=== PATIENT | female | born 1975 | race Caucasian/White ===

== ENCOUNTER 2020-01-23 09:52 | Emergency (ER) | payer MEDICARE ==
[~2020-01-23] VITALS: Ht 147.3 cm; Wt 83.9 kg
[~2020-01-23 09:52] MED LIST: ADVAIR 250/501 EA INH; CLARITIN10 M3 PO; INSULIN REGULAR SC; LORTAB 10-5001 EACH PO; NAPROXEN500 MG PO; SINGULAIR10 MG PO; XOPENEX HFA15 G1 INH; Z.0.LANTUS100 UNIT/1 SC; Z.0.NEURONTIN100 MG PO; Z.0.NORCO 10-325 T1 PO; Z.0.VICTOZA 2-0.6 MG; Z.0.XANAX1 MG PO; Z.0.ZOLOFT50 MG PO; Z.1.METFORMIN HCL100 PO
--- OUTSIDE RECORDS SUMMARY | 2020-01-23 09:56 | XMS REPORT ---
Author Author [facility] Address Unknown Phone Unavailable Care Team Providers Care 911 Dispatcher Name Role Phone Unavailable Unavailable Payers Payer Name Policy Type Policy Number Effective Date Expiration Date Problems This patient has no known problems. Allergies, Adverse Reactions, Alerts Allergy Name Allergy Type Status Severity Reaction(s) Onset Date Inactive Date Treating Clinician Comments aspirin DA Active SV 2013-05-29 00:00:00 Medications This patient has no known medications. Results Test Description Test Time Test Comments Text Results Atomic Results Result Comments - CT ABD PELVIS W/CONT 2019-09-24 19:45:00 Name: JOSE OLSON [facility] : 1975 Age/S: 44 / F [address] [facility] Unit #: [id number] Loc: [place] [address] Phys: Luis Manuel Leon MD Acct: [id number] Dis Date: Status: REG ER PHONE #: [phone] Exam Date: 09/24/2019 1901 FAX #: [phone] Reason: LUQ and RLQ pain EXAMS: CPT CODE: [id number] CT ABD PELVIS W/CONT 63249 HISTORY: Left upper and right lower quadrant pain. COMPARISON: CT scan from October 20, 2015. Location: TH. CT abdomen and pelvis with IV contrast: 100 mL is 370. Automated exposure control. CT of abdomen: The lung bases are clear. Small blebs and/or pneumatoceles in the left lung base. The liver is enhancing homogeneously. No mass or lesions. 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 The liver measured 18.1 cm in length. Portal vein and hepatic artery remain patent. Patient is post cholecystectomy. The spleen is not enlarged at 12.2 cm in length. Patient is post gastric sleeve procedure small. Stomach with thickened wall space in the antrum. Pancreas is enhancing homogeneously. Adrenals are normal. Kidneys are free from hydroureteronephrosis. Homogeneous enhancement. Bilateral excretion is noted. No pathologic adenopathy. Well-opacified abdominal and pelvic vasculature. No bowel obstruction or colitis or diverticulitis or enteritis. Constipation. CT PELVIS: Appendix is normal. Pelvic bowel loops are unobstructed. Thickened sigmoid colonic wall. Correlate for colitis. Mild inflammation. No free fluid or free air or abscess. Unremarkable urinary bladder and uterus. No free fluid or free air or abscess. No pelvic pathologic adenopathy. Subcutaneous tissues and the musculature are normal in appearance. No PAGE 1 Signed Report (CONTINUED) Name: JOSE OLSON [facility] : 1975 Age/S: 44 / F [address] [facility] [address] [facility] Unit #: [id number] Loc: [place] [address] Phys: Luis Manuel Leon MD Acct: [id number] Dis Date: Status: REG ER PHONE #: [phone] Exam Date: 09/24/2019 190 FAX #: [phone] Reason: LUQ and RLQ pain EXAMS: CPT CODE: [id number] CT ABD PELVIS W/CONT 80816 <Continued> lytic or blastic lesions are noted within the bony skeleton. 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 Grade 1 retrolisthesis of L5 over S1 without spondylolysis. IMPRESSION: Mild sigmoid colitis without free fluid or free air or abscess. Normal appendix. Mildly thickened gastric wall. Correlate for gastritis. at 1945 Reported and signed by: Forest Phipps M.D. CC: Luis Manuel Leon MD Technologist:Lucy Pillai CTDI: DLP: Trnscb Date/Time: 09/24/2019 (1944) [email or web address] Orig Print D/T: S: 09/24/2019 (1947) PAGE 2 Signed Report DRUGS OF ABUSE SCREEN UR 2019-09-24 19:28:00 URN COCAINE (test code=COCAURN) NEGATIVE NEGATIVE URN CANNABINOIDS (test code=CANNABURN) POSITIVE NEGATIVE URN AMPHETAMINE (test code=AMPHETURN) NEGATIVE NEGATIVE URN BARBITURATE (test code=BARBITURN) POSITIVE NEGATIVE This test provides only a preliminary test result. A morespecific alternate chemical method must be used in order toobtain a confirmed analytical result. Gas chromatography/mass spectrometry (GC/MS) is thepreferred confirmatory method. Other chemical confirmationmethods are available. Clinical consideration and professional judgment should be applied to any drug of abusetest result, particularly when preliminary positive resultsare used.Unconfirmed screening results must not be used fornon-medical purposes (e.g., employment testing, legaltesting). URN BENZODIAZEPINE (test code=BENZOURN) NEGATIVE NEGATIVE URN OPIATES (test code=OPIATURN) NEGATIVE NEGATIVE URN PHENCYCLIDINE (PCP) (test code=PHENCURN) NEGATIVE NEGATIVE - XR CHEST 2 [id number] 19:07:00 Name: JOSE OLSON [facility] : 1975 Age/S:44 /F [address] [facility] [address] [facility] Unit#:[id number] Loc: [place] [address] Phys: Luis Manuel Leon MD Dis Date: PHONE #: [phone] Status: REG FAX #: [phone] Exam Date: 09/24/2019 Reason: wheezing EXAMS: CPT CODE: [id number] XR CHEST 2 V 46590 HISTORY: Wheezing. COMPARISON: March 17, 2018. Location: TH. AP and lateral view of the chest: No acute infiltrates, effusion or congestion. Cardiac and the mediastinal silhouette are normal. IMPRESSION: No acute infiltrates, effusion or congestion. at 1907 Reported and signed by: Forest Phipps M.D. CC: Luis Manuel Leon MD Technologist: Lucy Mcdonaldscrpt Data: 09/24/2019 (1906) [email or web address] Orig Print D/T: S: 09/24/2019 (229) PAGE 1 Signed Report TROPONIN-I 2019-09-24 18:58:00* Test Item Value Reference Range Comments TROPONIN-I (test code=TROPI) <0.015 ng/mL 0.00-0.056 COMPREHENSIVE METABOLIC [id number] 18:43:00* Test Item Value Reference Range Comments SODIUM (test code=NA) 140 mmol/L 136-145 POTASSIUM (test code=K) 3.7 mmol/L 3.5-5.1 CHLORIDE (test code=CL) 101 mmol/L 101-109 CARBON DIOXIDE (test code=CO2) 30.2 mmol/L 21-32 ANION GAP (test code=GAP) 13 mmol/L 10-20 GLUCOSE (test code=GLU) 84 mg/dL 74-106 BLOOD UREA NITROGEN (test code=BUN) 18 mg/dL 3-21 CREATININE (test code=CREAT) 0.75 mg/dL 0.55-1.3 BUN/CREATININE RATIO (test code=BUN/CREA) 24.0 10-20 TOTAL PROTEIN (test code=PROT) 7.5 g/dL 6.5-8.4 ALBUMIN (test code=ALB) 3.9 g/dL 3.4-4.8 GLOBULIN (test code=GLOB) 3.6 G/DL 1-10 ALBUMIN/GLOBULIN RATIO (test code=A/G) 1.08 RATIO 0.75-1.50 CALCIUM (test code=CA) 9.1 mg/dL 8.4-10.2 BILIRUBIN TOTAL (test code=BILT) 0.30 mg/dL 0.0-1.0 SGOT/AST (test code=AST) 28 U/L 6-32 SGPT/ALT (test code=ALT) 16 U/L 12-78 Note: Change in REFERENCE RANGE due to new reagent method. ALKALINE PHOSPHATASE TOTAL (test code=ALKP) 65 U/L 38-126 [id number] 18:43:00* Test Item Value Reference Range Comments LIPASE (test code=LIP) 86 U/L 128-270 URINALYSIS [id number] 18:38:00* Test Item Value Reference Range Comments UA COLOR (test code=COLU) YELLOW YELLOW UA APPEARANCE (test code=APPU) HAZY CLEAR UA GLUCOSE DIPSTICK (test code=DGLUU) norm mg/dL NEGATIVE UA BILIRUBIN DIPSTICK (test code=BILU) NEGATIVE mg/dL NEGATIVE UA KETONE DIPSTICK (test code=KETU) 5 (Trace) mg/dL NEGATIVE UA SPECIFIC GRAVITY (test code=SGU) 1.030 1.001-1.035 UA BLOOD DIPSTICK (test code=CHOLO) 250 (4+) Vikash/uL NEGATIVE UA PH DIPSTICK (test code=ALEJANDRO) 5.0 5.0-8.0 UA PROTEIN DIPSTICK (test code=PROU) 15 (TRACE) mg/dL Neg-15 UA UROBILINIOGEN DIPSTICK (test code=URO) 1 mg/dL 0.0-0.2 UA NITRITE DIPSTICK (test code=CHRISITANO) NEGATIVE NEGATIVE UA LEUKOCYTE ESTERASE DIPSTICK (test code=LEUU) 25 Fred/uL (Trace) uL NEGATIVE UA WBC (test code=WBCU) 0-5 per HPF 0-5 UA RBC (test code=RBCU) 5-10 per HPF 0-5 UA EPITHELIAL CELLS (test code=EPIU) Few (2-5/hpf) per HPF Few UA BACTERIA (test code=BACU) FEW per HPF NONE URINALYSIS W/O [id number] 18:38:00* Test Item Value Reference Range Comments UA MICROSCOPIC NEEDED? (test code=UAMICRO) YES UR HCG [id number] 18:38:00* Test Item Value Reference Range Comments UR HCG QUAL (test code=HCGQLU) NEGATIVE This HCGQL test is NOT applicable for MALE patients.Check with nurse about probable order error.If Tumor Marker Test needed, nurse should order test "HCGTU"(Test #550.82861) COMPREHENSIVE METABOLIC [id number] 18:38:00* Test Item Value Reference Range Comments SODIUM (test code=NA) 140 mmol/L 136-145 POTASSIUM (test code=K) 3.7 mmol/L 3.5-5.1 CHLORIDE (test code=CL) 101 mmol/L 101-109 CARBON DIOXIDE (test code=CO2) 30.2 mmol/L 21-32 ANION GAP (test code=GAP) 13 mmol/L 10-20 GLUCOSE (test code=GLU) 84 mg/dL 74-106 BLOOD UREA NITROGEN (test code=BUN) 18 mg/dL 3-21 CREATININE (test code=CREAT) 0.75 mg/dL 0.55-1.3 BUN/CREATININE RATIO (test code=BUN/CREA) 24.0 10-20 TOTAL PROTEIN (test code=PROT) gram/dL 6.4-8.2 ALBUMIN (test code=ALB) g/dL 3.4-5.0 GLOBULIN (test code=GLOB) g/dL 2.7-4.2 ALBUMIN/GLOBULIN RATIO (test code=A/G) 0.75-1.50 CALCIUM (test code=CA) 9.1 mg/dL 8.4-10.2 BILIRUBIN TOTAL (test code=BILT) mg/dL 0.2-1.2 SGOT/AST (test code=AST) IUnit/L 15-37 SGPT/ALT (test code=ALT) U/L 10-69 ALKALINE PHOSPHATASE TOTAL (test code=ALKP) IUnit/L 45-117 [id number] 18:38:00* Test Item Value Reference Range Comments LIPASE (test code=LIP) Unit/L 144-286 URINALYSIS [id number] 18:29:00* Test Item Value Reference Range Comments UA COLOR (test code=COLU) YELLOW UA APPEARANCE (test code=APPU) CLEAR UA GLUCOSE DIPSTICK (test code=DGLUU) norm mg/dL NEGATIVE UA BILIRUBIN DIPSTICK (test code=BILU) NEGATIVE mg/dL NEGATIVE UA KETONE DIPSTICK (test code=KETU) 5 (Trace) mg/dL NEGATIVE UA SPECIFIC GRAVITY (test code=SGU) 1.030 1.001-1.035 UA BLOOD DIPSTICK (test code=CHOLO) 250 (4+) Vikash/uL NEGATIVE UA PH DIPSTICK (test code=ALEJANDRO) 5.0 5.0-8.0 UA PROTEIN DIPSTICK (test code=PROU) 15 (TRACE) mg/dL Neg-15 UA UROBILINIOGEN DIPSTICK (test code=URO) 1 mg/dL 0.0-0.2 UA NITRITE DIPSTICK (test code=CHRISTIANO) NEGATIVE NEGATIVE UA LEUKOCYTE ESTERASE DIPSTICK (test code=LEUU) 25 Fred/uL (Trace) uL NEGATIVE UA WBC (test code=WBCU) per HPF 0-5 UA RBC (test code=RBCU) per HPF 0-5 UA EPITHELIAL CELLS (test code=EPIU) per HPF Few UA BACTERIA (test code=BACU) per HPF NONE URINALYSIS W/O [id number] 18:29:00* Test Item Value Reference Range Comments UA MICROSCOPIC NEEDED? (test code=UAMICRO) YES UR HCG [id number] 18:29:00* Test Item Value Reference Range Comments UR HCG QUAL (test code=HCGQLU) URINALYSIS [id number] 18:29:00* Test Item Value Reference Range Comments UA COLOR (test code=COLU) YELLOW UA APPEARANCE (test code=APPU) CLEAR UA GLUCOSE DIPSTICK (test code=DGLUU) norm mg/dL NEGATIVE UA BILIRUBIN DIPSTICK (test code=BILU) NEGATIVE mg/dL NEGATIVE UA KETONE DIPSTICK (test code=KETU) 5 (Trace) mg/dL NEGATIVE UA SPECIFIC GRAVITY (test code=SGU) 1.030 1.001-1.035 UA BLOOD DIPSTICK (test code=CHOLO) 250 (4+) Vikash/uL NEGATIVE UA PH DIPSTICK (test code=ALEJANDRO) 5.0 5.0-8.0 UA PROTEIN DIPSTICK (test code=PROU) 15 (TRACE) mg/dL Neg-15 UA UROBILINIOGEN DIPSTICK (test code=URO) 1 mg/dL 0.0-0.2 UA NITRITE DIPSTICK (test code=CHRISTIANO) NEGATIVE NEGATIVE UA LEUKOCYTE ESTERASE DIPSTICK (test code=LEUU) 25 Fred/uL (Trace) uL NEGATIVE UA WBC (test code=WBCU) per HPF 0-5 UA RBC (test code=RBCU) per HPF 0-5 UA EPITHELIAL CELLS (test code=EPIU) per HPF Few UA BACTERIA (test code=BACU) per HPF NONE URINALYSIS W/O [id number] 18:29:00* Test Item Value Reference Range Comments UA MICROSCOPIC NEEDED? (test code=UAMICRO) YES UR HCG [id number] 18:29:00* Test Item Value Reference Range Comments UR HCG QUAL (test code=HCGQLU) NEGATIVE This HCGQL test is NOT applicable for MALE patients.Check with nurse about probable order error.If Tumor Marker Test needed, nurse should order test "HCGTU"(Test #550.13620) URINALYSIS [id number] 18:29:00* Test Item Value Reference Range Comments UA COLOR (test code=COLU) YELLOW UA APPEARANCE (test code=APPU) CLEAR UA GLUCOSE DIPSTICK (test code=DGLUU) norm mg/dL NEGATIVE UA BILIRUBIN DIPSTICK (test code=BILU) NEGATIVE mg/dL NEGATIVE UA KETONE DIPSTICK (test code=KETU) 5 (Trace) mg/dL NEGATIVE UA SPECIFIC GRAVITY (test code=SGU) 1.030 1.001-1.035 UA BLOOD DIPSTICK (test code=CHOLO) 250 (4+) Vikash/uL NEGATIVE UA PH DIPSTICK (test code=ALEJANDRO) 5.0 5.0-8.0 UA PROTEIN DIPSTICK (test code=PROU) 15 (TRACE) mg/dL Neg-15 UA UROBILINIOGEN DIPSTICK (test code=URO) 1 mg/dL 0.0-0.2 UA NITRITE DIPSTICK (test code=CHRISTAINO) NEGATIVE NEGATIVE UA LEUKOCYTE ESTERASE DIPSTICK (test code=LEUU) 25 Fred/uL (Trace) uL NEGATIVE UA WBC (test code=WBCU) per HPF 0-5 UA RBC (test code=RBCU) per HPF 0-5 UA EPITHELIAL CELLS (test code=EPIU) per HPF Few UA BACTERIA (test code=BACU) per HPF NONE URINALYSIS W/O [id number] 18:29:00* Test Item Value Reference Range Comments UA MICROSCOPIC NEEDED? (test code=UAMICRO) YES UR HCG [id number] 18:29:00* Test Item Value Reference Range Comments UR HCG QUAL (test code=HCGQLU) CBC W/AUTO [id number] 18:28:00* Test Item Value Reference Range Comments WHITE BLOOD CELL (test code=WBC) 6.4 K/mm3 4.5-12.5 RED BLOOD CELL (test code=RBC) 5.32 mill/mm3 3.7-5.2 HEMOGLOBIN (test code=HGB) 13.8 gram/dL 11.5-15.5 HEMATOCRIT (test code=HCT) 43.8 % 36.0-46.0 MEAN CELL VOLUME (test code=MCV) 82.3 fL 80-98 MEAN CELL HGB (test code=MCH) 25.9 picogram 27.0-33.0 MEAN CELL HGB CONCETRATION (test code=MCHC) 31.5 gram/dL 33.0-36.0 RED CELL DISTRIBUTION WIDTH (test code=RDW) 14.9 % 11.6-16.2 RED CELL DISTRIBUTION WIDTH SD (test code=RDW-SD) 44.9 fL 37.0-51.0 PLATELET COUNT (test code=PLT) 182 K/mm3 150-450 MEAN PLATELET VOLUME (test code=MPV) 12.1 fL 6.7-11.0 NEUTROPHIL % (test code=NT%) 65.4 % 39.0-69.0 LYMPHOCYTE % (test code=LY%) 26.8 % 25.0-55.0 MONOCYTE % (test code=MO%) 5.1 % 0.0-10.0 EOSINOPHIL % (test code=EO%) 1.6 % 0.0-5.0 BASOPHIL % (test code=BA%) 0.9 % 0.0-1.0 NEUTROPHIL # (test code=NT#) 4.19 K/mm3 1.8-7.7 LYMPHOCYTE # (test code=LY#) 1.72 K/mm3 1.0-5.0 MONOCYTE # (test code=MO#) 0.33 K/mm3 0-0.8 EOSINOPHIL # (test code=EO#) 0.10 K/mm3 0.0-0.5 BASOPHIL # (test code=BA#) 0.06 K/mm3 0.0-0.2 MANUAL DIFF REQUIRED (test code=MDIFF) NO
[2020-01-23] MEDS ORDERED: SODIUM CHLORIDE 0.9% 1000ML 1,000 ML IV SCH (10:22)
[2020-01-23] MEDS ORDERED: ONDANSETRON HCL INJ 2MG/ML 2ML 2 MG/ML VIAL IV STA (10:22)
[2020-01-23] MEDS ORDERED: KETOROLAC TROMETHAMINE 30 MG/ML VIAL IV STA (10:26)
[2020-01-23] MEDS ORDERED: KETOROLAC TROMETHAMINE 30 MG/ML VIAL ONE ×2 (10:32→10:36)
[2020-01-23] MEDS ORDERED: FAMOTIDINE 20 MG/2 ML VIAL IV ONE (10:36)
--- NOTE | 2020-01-23 11:30 | Diagnostic Imaging Report ---
Chest, PA and lateral. History: Fever, aches Comparison: None available. Discussion: The cardiomediastinal silhouette and pulmonary vasculature are within normal limits. The lungs are clear without evidence of consolidation or effusion. There are no acute osseous abnormalities. Cholecystectomy clips are seen in the right upper quadrant. IMPRESSION: No radiographic evidence of acute cardiopulmonary abnormality. Signed by: Reji Damico MD on 01/23/2020 11:27 AM
== END 2020-01-23 11:56 | disposition home or self-care (01) ==
LOC: FSED 09:52
DX: R50.9 Fever, unspecified (principal); R05 Cough; B34.9 Viral infection, unspecified; J06.9 Acute upper respiratory infection, unspecified; J02.9 Acute pharyngitis, unspecified; A08.4 Viral intestinal infection, unspecified; K52.9 Noninfective gastroenteritis and colitis, unspecified; E86.9 Volume depletion, unspecified
CPT/HCPCS: 71046; 80053; 81003; 81025; 83518; 87400; 99284; J1885; J2405; J7030

== ENCOUNTER 2020-02-20 16:18 | Emergency (ER) | payer MEDICARE ==
[~2020-02-20] VITALS: Ht 147.3 cm; Wt 83.9 kg
[2020-02-20] MEDS ORDERED: ALBUTEROL SULF 0.083% NEB SOLN 3 ML NEB NEB STA (16:32)
[2020-02-20] MEDS ORDERED: DEXAMETHASONE SOD PHOS 10 MG/1 ML VIAL IV ONE (16:45)
[2020-02-20] MEDS ORDERED: DEXAMETHASONE SOD PHOS 10 MG/1 ML VIAL ONE (16:50)
[2020-02-20] MEDS ORDERED: ALBUTEROL/IPRATROPIUM 3 ML NEB ONE (16:51)
--- NOTE | 2020-02-20 17:02 | Diagnostic Imaging Report ---
EXAMINATION: CXR 1 VEW - HOPD INDICATION: Cough COMPARISON: None FINDINGS: LINES/TUBES:None LUNGS:The lungs are well-inflated. No focal consolidation or pulmonary edema. PLEURA:No pleural effusion or pneumothorax. MEDIASTINUM:The cardiomediastinal silhouette appears normal in size and shape. BONES/SOFT TISSUES:No acute osseous injury. ABDOMEN:No free air under the diaphragm. Surgical clips in the left upper quadrant. Cholecystectomy clips in the right upper quadrant. IMPRESSION: No focal pneumonia or pulmonary edema. Signed by: Ventura Kang MD on 02/20/2020 4:59 PM
[2020-02-20] MEDS ORDERED: TESSALON PERLE100 MG PO (17:17)
[2020-02-20 17:50] VITALS: BP 127/68
== END 2020-02-20 17:50 | disposition home or self-care (01) ==
LOC: FSED 16:18
DX: R05 Cough (principal); J20.9 Acute bronchitis, unspecified; J45.41 Moderate persistent asthma with (acute) exacerbation; Z98.84 Bariatric surgery status
CPT/HCPCS: 71045; 80048; 85025; 96374; 99283; J1100